=== PATIENT | female | born 1965 | race Caucasian/White ===

== ENCOUNTER 2016-11-13 21:26 | Emergency (ER) | payer MEDICAID ==
[2016-11-13 21:32] VITALS: RESP 16
[2016-11-13] MEDS ORDERED: NS 1,000 ML IV ONE (22:13)
[2016-11-13] MEDS ORDERED: fentaNYL 100 MCG/2 ML INJ IVP ONE (22:13)
--- NOTE | 2016-11-13 22:16 | EDPHY ---
H & P Stated Complaint: abd pain, CUENCA, worsening since this morning Time Seen by Provider: 11/13/16 22:02 HPI/ROS: Chief Complaint: Abdominal pain HPI: 51-year-old female presenting with right-sided an low pelvic abdominal pain this morning. Denies a history of the same. It is constant. There are no aggravating or alleviating factors. Is an 8/10. She vomited once this morning. Does not have any diarrhea or constipation. No fevers or chills. Is having some pain with urination today and some increasing frequency. Does have a history of abdominal surgeries including hysterectomy, oophorectomy, appendectomy and cholecystectomy. She has not taking any medication for the pain. ROS: 10 point Review of Systems is negative except as noted in the HPI. PMH: Endometriosis, depression Past surgical history: Hysterectomy, oophorectomy, bladder surgery, cholecystectomy, appendectomy Social History: No smoking, no alcohol, no recreational drug use Family History: non-contributory Physical Exam: Gen: Awake, Alert, No Distress HEENT: Nose: no rhinorrhea Eyes: PERRLA, EOMI Mouth: Moist mucosa Neck: Supple, no JVD Chest: nontender, lungs clear to auscultation Heart: S1, S2 normal, no murmur Abd: Soft, mild right lower quadrant and suprapubic tenderness, no rebound or guarding, no guarding Back: no CVA tenderness, no midline tenderness Ext: no edema, non-tender Skin: no rash Neuro: CN II-XII intact, Sensation grossly intact, Strength 5/5 in bilateral upper and lower extremities - Personal History LMP (Females 10-55): Hysterectomy Current Tetanus/Diphtheria Vaccine: Yes Tetanus Vaccine Date: WITHIN 10 YRS - Medical/Surgical History Hx Asthma: No Hx Chronic Respiratory Disease: No Hx Diabetes: No Hx Cardiac Disease: No Hx Renal Disease: No Hx Cirrhosis: No Hx Alcoholism: No Hx HIV/AIDS: No Hx Splenectomy or Spleen Trauma: No Other PMH: PSHx: GB, Appy,. laps. hyst. bladder mesh. PMHx: MS, CHRONIC PAIN. TBI. NECK INJURY - Social History Smoking Status: Former smoker Constitutional: Initial Vital Signs Temperature (C) 36.5 C 11/13/16 21:29 Heart Rate 70 11/13/16 21:29 Respiratory Rate 16 11/13/16 21:29 Blood Pressure 128/83 H 11/13/16 21:29 O2 Sat (%) 95 11/13/16 21:29 O2 Delivery Mode Room Air Allergies/Adverse Reactions: No Known Allergies Allergy (Verified 01/24/15 12:05) Home Medications: Medication Instructions Recorded FLUoxetine [Prozac 20 MG (*)] 60 mg PO DAILY 02/25/12 Pregabalin [LYRICA] 400 mg PO 0700,1200 02/25/12 Iron 09/25/13 Progesterone 09/25/13 Vitamin D3 (OTC) 09/25/13 Amitiza 8 mcg (RX) 05/06/14 Copaxone 05/06/14 Relpax 05/06/14 oxyCODONE/APAP 5/325 [Percocet 1 tab PO Q4-6PRN PRN #14 tab 01/24/15 5/325] Benzonatate [Tessalon Pearles] 100 mg PO TID #12 cap 03/03/16 Medical Decision Making - Diagnostics Imaging Results: Imaging Impressions Abdomen CT 11/13/16 23:04 Impression: 1. Moderate hepatic steatosis and hepatomegaly with fatty sparing around the [place] stable in appearance. 2. Moderate constipation. 3. Previous cholecystectomy, appendectomy, and hysterectomy. Findings discussed with Ramin Olivares MD at 23:50 hour, 11/13/2016. Imaging: Discussed imaging studies w/ body recall instructor Radiologist ED Course/Re-evaluation: Patient's pain is unchanged for 50 mcg of fentanyl and a L of fluid. CBC, chemistry, lipase and LFTs are all normal. Urine dip is negative. Repeat examination shows some persistent tenderness in the right side of the abdomen and right upper quadrant. Given the persistence of her symptoms and her history multiple surgeries obtain a CT scan abdomen pelvis rule out obstruction or any other intra-abdominal process at this time. [address] scan shows constipation but no other acute changes. Laboratory evaluations are unremarkable. Patient's abdomen is soft and benign. Will discharge with follow with her primary care physician in several days time. - Data Points Laboratory Results: Laboratory Results 11/13/16 21:50 11/13/16 21:50 11/13/16 11/13/16 21:50 21:50 WBC 7.51 10^3/uL 10^3/uL (3.80-9.50) RBC 4.28 10^6/uL 10^6/uL (4.18-5.33) Hgb 13.2 g/dL g/dL (12.6-16.3) Hct 38.6 % % (38.0-47.0) MCV 90.2 fL fL (81.5-99.8) MCH 30.8 pg pg (27.9-34.1) MCHC 34.2 g/dL g/dL (32.4-36.7) RDW 13.5 % % (11.5-15.2) Plt Count 304 10^3/uL 10^3/uL (150-400) MPV 9.8 fL fL (8.7-11.7) Neut % (Auto) 45.4 % % (39.3-74.2) Lymph % (Auto) 39.8 % % (15.0-45.0) Crawford % (Auto) 7.7 % % (4.5-13.0) Eos % (Auto) 5.9 % % (0.6-7.6) Baso % (Auto) 1.1 % % (0.3-1.7) Nucleat RBC Rel Count 0.0 % % (0.0-0.2) Absolute Neuts (auto) 3.41 10^3/uL 10^3/uL (1.70-6.50) Absolute Lymphs (auto) 2.99 10^3/uL 10^3/uL (1.00-3.00) Absolute Monos (auto) 0.58 10^3/uL 10^3/uL (0.30-0.80) Absolute Eos (auto) 0.44 10^3/uL H 10^3/uL (0.03-0.40) Absolute Basos (auto) 0.08 10^3/uL 10^3/uL (0.02-0.10) Absolute Nucleated RBC 0.00 10^3/uL 10^3/uL (0-0.01) Immature Gran % 0.1 % % (0.0-1.1) Immature Gran # 0.01 10^3/uL 10^3/uL (0.00-0.10) Sodium 140 mEq/L mEq/L (134-144) Potassium 3.4 mEq/L L mEq/L (3.5-5.2) Chloride 106 mEq/L mEq/L (97-110) Carbon Dioxide 23 mEq/l mEq/l (22-31) Anion Gap 11 mEq/L mEq/L (8-16) BUN 26 mg/dL H mg/dL (7-23) Creatinine 0.8 mg/dL mg/dL (0.6-1.0) Estimated GFR > 60 Glucose 89 mg/dL mg/dL (70-100) Calcium 9.0 mg/dL mg/dL (8.5-10.4) Total Bilirubin 0.6 mg/dL mg/dL (0.1-1.4) Conjugated Bilirubin 0.2 mg/dL mg/dL (0.0-0.5) Unconjugated Bilirubin 0.4 mg/dL mg/dL (0.0-1.1) AST 25 IU/L IU/L (14-46) ALT 45 IU/L IU/L (9-52) Alkaline Phosphatase 79 IU/L IU/L (38-126) Total Protein 7.3 g/dL g/dL (6.3-8.2) Albumin 4.2 g/dL g/dL (3.5-5.0) Lipase 172.0 IU/L IU/L (23-300) Medications Given: Discontinued Medications Fentanyl (Sublimaze) 50 mcg IVP EDNOW ONE Stop: 11/13/16 22:14 Last Admin: 11/13/16 22:30 Dose: 50 mcg Sodium Chloride (Ns) 1,000 mls @ 0 mls/hr IV ONCE ONE PRN Reason: Wide Open Stop: 11/13/16 22:14 Last Admin: 11/13/16 22:30 Dose: 1,000 mls Ketorolac Tromethamine (Toradol) 15 mg IVP EDNOW ONE Stop: 11/13/16 23:42 Last Admin: 11/14/16 00:07 Dose: 15 mg Departure - Departure Disposition: Home, Routine, Self-Care Clinical Impression: Abdominal pain, Constipation Condition: Good Instructions: Constipation (ED), Abdominal Pain (ED) Additional Instructions: Return to the emergency department for worsening severe pain, nausea, vomiting, uncontrolled diarrhea, fevers, chills, or any other concerns. Referrals: Elizabeth Shah PA [Primary Care Provider] - As per Instructions
[2016-11-13 22:18] LABS: % IMMATURE GRANULYOCYTES 0.1 % (0.0-1.1); ABSOLUTE IMMATURE GRANULOCYTES 0.01 10^3/uL (0.00-0.10); ADD DIFF? NO; ADD MORPH? NO; ADD SCAN? NO; ATYPICAL LYMPHOCYTE FLAG 20 (0-99); FRAGMENT RBC FLAG 0 (0-99); HEMATOCRIT 38.6 % (38.0-47.0); HEMOGLOBIN 13.2 g/dL (12.6-16.3); LEFT SHIFT FLG 0 (0-99); LIPEMIA HEMOLYSIS FLAG 90 (0-99); MEAN CELL HEMOGLOBIN 30.8 pg (27.9-34.1); MEAN CELL HEMOGLOBIN CONCENTR. 34.2 g/dL (32.4-36.7); MEAN CELL VOLUME 90.2 fL (81.5-99.8); MEAN PLATELET VOLUME 9.8 fL (8.7-11.7); PLATELET CLUMPS FLAG 20 (0-99); PLATELET COUNT 304 10^3/uL (150-400); RED BLOOD CELL COUNT 4.28 10^6/uL (4.18-5.33); RED CELL DISTRIBUTION WIDTH 13.5 % (11.5-15.2)
[2016-11-13 22:20] VITALS: TEMP 98.4
[2016-11-13 22:25] LABS: ALANINE AMINOTRANSFERASE 45 IU/L (9-52); ALBUMIN 4.2 g/dL (3.5-5.0); ALKALINE PHOSPHATASE 79 IU/L (38-126); ANION GAP 11 mEq/L (8-16); ASPARTATE AMINOTRANSFERASE 25 IU/L (14-46); BILIRUBIN,TOTAL 0.6 mg/dL (0.1-1.4); BILIRUBIN-CONJUGATED 0.2 mg/dL (0.0-0.5); BILIRUBIN-UNCONJUGATED 0.4 mg/dL (0.0-1.1); CARBON DIOXIDE 23 mEq/l (22-31); CHLORIDE 106 mEq/L (97-110); CREATININE 0.8 mg/dL (0.6-1.0); GLOMERULAR FILTRATION RATE > 60; GLUCOSE 89 mg/dL (70-100); POTASSIUM 3.4 mEq/L (3.5-5.2); SODIUM 140 mEq/L (134-144); TOTAL PROTEIN 7.3 g/dL (6.3-8.2)
[2016-11-13] MEDS ORDERED: IOPAMIDOL (ISOVUE-300) 100 ML BTL ONE (23:11)
[2016-11-13] MEDS ORDERED: KETOROLAC 15 MG/1 ML SDV IVP ONE (23:41)
[2016-11-14 00:17] VITALS: BP 102/56; PULSE 66; O2SAT 96
== END 2016-11-14 01:27 | disposition home or self-care (01) ==
DX: K59.00 Constipation, unspecified (principal); R11.10 Vomiting, unspecified; Z87.891 Personal history of nicotine dependence; Z90.49 Acquired absence of other specified parts of digestive tract; Z90.710 Acquired absence of both cervix and uterus
CPT/HCPCS: 96374; J1885; J3010; Q9967

== ENCOUNTER 2017-05-10 22:34 | Emergency (ER) | payer MEDICAID ==
[2017-05-10] MEDS ORDERED: ONDANSETRON 4 MG/2 ML VIAL IVP ONE (22:42)
[2017-05-10] MEDS ORDERED: NS 1,000 ML IV ONE (22:42)
[2017-05-10] MEDS ORDERED: HYDROmorphONE/DILAUDID 1 MG/ML INJ IVP ONE ×2 (22:42→23:12)
[2017-05-10 22:59] LABS: PLATELET COUNT 382 10^3/uL (150-400)
[2017-05-10] MEDS ORDERED: IOPAMIDOL (ISOVUE-300) 100 ML BTL ONE (23:10)
--- NOTE | 2017-05-10 23:54 | EDPHY ---
H & P Stated Complaint: sudden onset upper abd pain with V this am - Personal History Tetanus Vaccine Date: WITHIN 10 YRS - Medical/Surgical History Hx Asthma: No Hx Chronic Respiratory Disease: No Hx Diabetes: No Hx Cardiac Disease: No Hx Renal Disease: No Hx Cirrhosis: No Hx Alcoholism: No Hx HIV/AIDS: No Hx Splenectomy or Spleen Trauma: No Other PMH: PSHx: GB, Appy,. laps. hyst. bladder mesh. PMHx: MS, CHRONIC PAIN , HAs, TBI, NECK INJURY - Social History Smoking Status: Former smoker HPI/ROS: Chief complaint: Abdominal pain History of present illness: This is a 51-year-old female brought to the emergency department by EMS for evaluation of abdominal pain. She reports the onset of symptoms this morning. The symptoms have been progressively worsening. This pain is primarily in the upper aspect of the abdomen on the right and left and in the epigastric region. This morning she had nausea and vomiting. No blood reported in the vomit. Nausea has persisted. She denies precipitating factors. She denies alleviating factors. She denies other associated signs or symptoms including no fevers, no diarrhea or constipation, no urinary symptoms. She has never had similar. Review of systems: A 10 point review of systems was obtained and other than described above was negative (Kb Navas) - Physical Exam Exam: General Appearance: Alert, appears uncomfortable. Eyes: Pupils equal and round no pallor or injection. ENT, Mouth: Mucous membranes moist. Respiratory: There are no retractions, lungs are clear to auscultation. Cardiovascular: Regular rate and rhythm. Gastrointestinal: Bowel sounds are diminished. Abdomen is distended. Diffuse tenderness. Neurological: Alert and oriented x4. Strength and sensation intact and symmetrical. Skin: Warm and dry, no rashes. Musculoskeletal: Neck is supple non tender. Extremities are symmetrical, full range of motion. Psychiatric: Patient is oriented X 3, there is no agitation. (Kb Navas) Constitutional: Initial Vital Signs Temperature (C) 36.4 C 05/10/17 22:40 Heart Rate 74 05/10/17 22:40 Respiratory Rate 20 05/10/17 22:40 Blood Pressure 118/70 05/10/17 22:40 O2 Sat (%) 94 05/10/17 22:40 O2 Delivery Mode Nasal Cannula O2 (L/minute) 1 Allergies/Adverse Reactions: No Known Allergies Allergy (Verified 01/24/15 12:05) Home Medications: Medication Instructions Recorded FLUoxetine [Prozac 20 MG (*)] 60 mg PO DAILY 02/25/12 Pregabalin [LYRICA] 400 mg PO 0700,1200 02/25/12 Iron 09/25/13 Vitamin D3 (OTC) 09/25/13 Amitiza 8 mcg (RX) 05/06/14 Relpax 05/06/14 Baclofen 05/10/17 LaMICtal 05/10/17 Propranolol HCl 05/10/17 Medical Decision Making - Diagnostics Imaging Results: Imaging Impressions Abdomen CT 05/10/17 23:17 Impression: 1. No explanation for epigastric pain. No evidence of pancreatitis or bowel perforation. 2. Constipation and gaseous bowel pattern. No obstruction or volvulus. 3. Hepatomegaly and diffuse hepatic steatosis similar to October 2016. Findings discussed with Emergency Department physician, Felicitas Davenport MD at 05/10/2017 23:49. ED Course/Re-evaluation: Patient is seen under the supervision of my secondary supervising physician Dr. Felicitas Davenport. Patient presents to the emergency department for abdominal pain. She is unwell appearing. Blood studies with mild leukocytosis and mild elevation of LFTs. CT scan unremarkable. EKG and troponin ordered and pending at time of dictation. Care of patient turned over to Dr. Felicitas Davenport at end of shift. (Kb Navas) ED PA DICTATION I evaluated and participated in the management of the patient. I also evaluated the patient independently. My co-signature indicates that I have reviewed this chart and I agree with the findings and plan of care as documented. My personal H&P findings include: This is a 51-year-old female who does have a history of chronic pain who presents with abdominal pain for the last several hours. On exam initially she was hypotensive, however blood pressures have been stable. She does appear somewhat distended, with no tenderness. Labs were checked and were unremarkable except for transaminitis. CT scan did demonstrate fatty liver and gas without any worrisome findings. The patient did receive Dilaudid and was quite sedate on my assessment. Thus, she was observed for several hours in the emergency department. RN reports that she passed a large amount of flatus and felt much better while in the bathroom. She became more awake and alert after few hours here. Repeat abdominal exam was entirely benign and the patient said she was feeling much better. She was able to call a taxi to take her home. We discussed treatment with increased fiber, fluids, possibly MiraLax. She is in agreement with this plan. (Felicitas Davenport) Differential Diagnosis: Included but not limited to gastritis, peptic ulcer disease, biliary tract disease, pancreatitis, colitis, bowel obstruction, ACS, great vessel disease ( Yosef,Kb) - Data Points Laboratory Results: Laboratory Results 05/10/17 22:49 05/10/17 22:49 05/10/17 05/10/17 05/10/17 22:49 22:49 22:49 WBC 11.05 10^3/uL H 10^3/uL (3.80-9.50) RBC 4.50 10^6/uL 10^6/uL (4.18-5.33) Hgb 13.7 g/dL g/dL (12.6-16.3) POC Hgb Hct 41.6 % % (38.0-47.0) POC Hct MCV 92.4 fL fL (81.5-99.8) MCH 30.4 pg pg (27.9-34.1) MCHC 32.9 g/dL g/dL (32.4-36.7) RDW 13.2 % % (11.5-15.2) Plt Count 382 10^3/uL 10^3/uL (150-400) MPV 10.1 fL fL (8.7-11.7) Neut % (Auto) 38.1 % L % (39.3-74.2) Lymph % (Auto) 48.9 % H % (15.0-45.0) Lanier % (Auto) 8.8 % % (4.5-13.0) Eos % (Auto) 2.9 % % (0.6-7.6) Baso % (Auto) 1.0 % % (0.3-1.7) Nucleat RBC Rel Count 0.0 % % (0.0-0.2) Absolute Neuts (auto) 4.22 10^3/uL 10^3/uL (1.70-6.50) Absolute Lymphs (auto) 5.40 10^3/uL H 10^3/uL (1.00-3.00) Absolute Monos (auto) 0.97 10^3/uL H 10^3/uL (0.30-0.80) Absolute Eos (auto) 0.32 10^3/uL 10^3/uL (0.03-0.40) Absolute Basos (auto) 0.11 10^3/uL H 10^3/uL (0.02-0.10) Absolute Nucleated RBC 0.00 10^3/uL 10^3/uL (0-0.01) Immature Gran % 0.3 % % (0.0-1.1) Immature Gran # 0.03 10^3/uL 10^3/uL (0.00-0.10) POC Sodium Sodium 140 mEq/L mEq/L (135-145) POC Potassium Potassium 4.3 mEq/L mEq/L (3.5-5.2) POC Chloride Chloride 104 mEq/L mEq/L (97-110) Carbon Dioxide 21 mEq/l L mEq/l (22-31) Anion Gap 15 mEq/L mEq/L (8-16) POC BUN BUN 15 mg/dL mg/dL (7-23) Creatinine 0.9 mg/dL mg/dL (0.6-1.0) POC Creatinine Estimated GFR > 60 Glucose 145 mg/dL H mg/dL (70-100) POC Glucose Calcium 9.8 mg/dL mg/dL (8.5-10.4) Total Bilirubin 0.7 mg/dL mg/dL (0.1-1.4) Conjugated Bilirubin 0.4 mg/dL mg/dL (0.0-0.5) Unconjugated Bilirubin 0.3 mg/dL mg/dL (0.0-1.1) AST 100 IU/L H IU/L (14-46) ALT 101 IU/L H IU/L (9-52) Alkaline Phosphatase 134 IU/L H IU/L (38-126) Troponin I < 0.012 ng/mL ng/mL (0.000-0.034) Total Protein 7.5 g/dL g/dL (6.3-8.2) Albumin 4.1 g/dL g/dL (3.5-5.0) Lipase 173 IU/L IU/L (23-300) 05/10/17 22:45 WBC RBC Hgb POC Hgb 14.6 gm/dL gm/dL (12.6-16.3) Hct POC Hct 43 % % (38-47) MCV MCH MCHC RDW Plt Count MPV Neut % (Auto) Lymph % (Auto) Lanier % (Auto) Eos % (Auto) Baso % (Auto) Nucleat RBC Rel Count Absolute Neuts (auto) Absolute Lymphs (auto) Absolute Monos (auto) Absolute Eos (auto) Absolute Basos (auto) Absolute Nucleated RBC Immature Gran % Immature Gran # POC Sodium 141 mEq/L mEq/L (134-144) Sodium POC Potassium 3.6 mEq/L mEq/L (3.3-5.0) Potassium POC Chloride 105 mEq/L mEq/L (97-110) Chloride Carbon Dioxide Anion Gap POC BUN 16 mg/dL mg/dL (7-23) BUN Creatinine POC Creatinine 1.0 mg/dL mg/dL (0.6-1.0) Estimated GFR Glucose POC Glucose 150 mg/dL H mg/dL (70-100) Calcium Total Bilirubin Conjugated Bilirubin Unconjugated Bilirubin AST ALT Alkaline Phosphatase Troponin I Total Protein Albumin Lipase Medications Given: Discontinued Medications Hydromorphone HCl (Dilaudid) 1 mg IVP EDNOW ONE Stop: 05/10/17 22:43 Last Admin: 05/10/17 22:51 Dose: 1 mg Hydromorphone HCl (Dilaudid) 1 mg IVP EDNOW ONE Stop: 05/10/17 23:13 Last Admin: 05/10/17 23:43 Dose: Not Given Sodium Chloride (Ns) 1,000 mls @ 0 mls/hr IV EDNOW ONE; Wide Open PRN Reason: Protocol Stop: 05/10/17 22:43 Last Admin: 05/10/17 22:50 Dose: 1,000 mls Sodium Chloride (Ns) 500 mls @ 1,000 mls/hr IV EDNOW ONE PRN Reason: Protocol Stop: 05/11/17 01:13 Last Admin: 05/11/17 00:45 Dose: 500 mls Ondansetron HCl (Zofran) 4 mg IVP EDNOW ONE Stop: 05/10/17 22:43 Last Admin: 05/10/17 22:49 Dose: 4 mg Point of Care Test Results: 01/09/18 22:45 POC Sodium 141 POC Potassium 3.6 POC Chloride 105 POC BUN 16 POC Creatinine 1.0 POC Glucose 150 H Departure - Departure Clinical Impression: Abdominal pain Condition: Fair Referrals: Elizabeth Shah PA [Primary Care Provider] - As per Instructions
--- NOTE | 2017-05-11 00:15 | CPEKG ---
Heart Rate: 69 RR Interval: 870 P-R Interval: 148 QRSD Interval: 96 QT Interval: 452 QTC Interval: 485 P Hollister: 38 QRS Hollister: 56 T Wave Hollister: 26 EKG Severity - BORDERLINE ECG - EKG Impression: SINUS RHYTHM EKG Impression: PROBABLE LEFT ATRIAL ABNORMALITY Electronically Signed By: Brady Liao 11-May-2017 10:58:18
[2017-05-11] MEDS ORDERED: NS 500 ML IV ONE (00:44)
[2017-05-11 06:06] VITALS: BP 125/81; PULSE 75; RESP 17; TEMP 97.9; O2SAT 94
== END 2017-05-11 06:03 | disposition home or self-care (01) ==
LOC: EDUNIT#
PROC: 3E0337Z Introduction of Electrolytic and Water Balance Substance into Peripheral Vein, Percutaneous Approach (ICD-10-PCS; principal; 2017-05-10)
DX: R10.84 Generalized abdominal pain (principal); E86.9 Volume depletion, unspecified; Z87.891 Personal history of nicotine dependence
CPT/HCPCS: 82947-QW; 96374; J1170; J2405; Q9967

== ENCOUNTER → 2018-07-26 | Outpatient (CLI) | payer MEDICAID | LOC: FIMAGING 19:32 | PROVIDERS: ATTEND Physician Assistant Medical | DX: M25.561 Pain in right knee (principal) ==